=== PATIENT | male | born 2005 | race Caucasian/White ===

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

== ENCOUNTER 2023-02-28 11:42 | Outpatient (CLI) | payer MEDICAID, SELFPAY ==
--- NOTE | 2023-02-28 12:00 | MR_ITS ---
WS: [id number] MRI BRAIN WITHOUT CONTRAST HISTORY: SHAKES/HYPOGLYCEMIA/ALTERED LEVEL OF CONSCIOUSNESS COMPARISON: None available. TECHNIQUE: Diffusion imaging, multiplanar T1, T2 and FLAIR imaging obtained. No evidence for acute infarct or hemorrhage. Garcia-white matter differentiation is normal. No remote or acute infarcts are volume loss. Ventricles and extra-axial spaces are normal. No inferior displacement of cerebellar tonsils. The sella turcica and pituitary gland are unremarkabl e. Normal size pituitary gland. Dural venous sinuses and [place] demonstrate no abnormality on this unenhanced studies. Paranasal sinuses: Small mucous retention cyst in the floor the RIGHT maxillary sinus. Mastoid air cells: Normal. Calvarium and scalp: Intact. MR/MR head wo con* [id number] IMPRESSION: 1. Unremarkable noncontrast MRI brain. 2. No prior infarcts or hemorrhage.
== END 2023-02-28 11:43 | disposition home or self-care (01) ==
PROVIDERS: PCP Family Medicine; Visit Provider Nurse Practitioner Family
DX: R25.1 Tremor, unspecified (principal); E16.2 Hypoglycemia, unspecified; R40.4 Transient alteration of awareness
CPT/HCPCS: 70551